=== PATIENT | female | born 1955 | race African-American/Black ===

== ENCOUNTER 2025-08-02 11:02 | Outpatient (CLI) | payer MEDICARE, SELFPAY ==
[2025-08-02 12:45] LABS: #Basophils 0.09 10x3/uL (0.0-0.2); #Eosinophils 0.15 10x3/uL (0.0-0.7); #Monocytes 0.91 10x3/uL (0.11-0.59); #Neutrophils 4.39 10x3/uL (1.40-6.50); %Basophils 1.0 % (0.0-1.0); %Eosinophils 1.6 % (0.0-10.0); %Lymphocytes 40.0 % (21.0-51.0); %Monocytes 9.8 % (0.0-10.0); %Neutrophils 47.3 % (42.0-75.0); Hematocrit 46.9 % (36.0-47.0); Hemoglobin 15.7 g/dL (12.0-16.0); Mean Corpuscular Hemoglobin 30.2 pg (27.0-31.0); Mean Corpuscular Volume 90.2 fL (78.0-98.0); Platelet Count 284 10x3/uL (130-400); Red Blood Cell (RBC) Count 5.20 mill/uL (4.20-5.40); White Blood Cell (WBC) Count 9.29 10x3/uL (4.8-10.8)
[2025-08-02 12:59] LABS: INR-International Normal Ratio 1.1; Prothrombin Time 14.0 sec (12.0-14.7)
[2025-08-02 13:06] LABS: ALT (SGPT) 18 U/L (Less than 34); AST (SGOT) 24 U/L (11-34); Albumin 4.2 g/dL (3.1-4.5); Alkaline Phosphatase 68 U/L (40-110); Anion Gap 10 mmol/L (10-20); BUN (Urea Nitrogen) 23 mg/dL (9.8-20.1); Bilirubin, Total 0.3 mg/dL (0.3-1.2); Calc. Creatinine Clearance 0 mL/min (70-130); Calcium 9.8 mg/dL (7.8-10.44); Carbon Dioxide 24 mmol/L (23-31); Chloride 108 mmol/L (98-107); Globulin 3.3 g/dL (2.4-3.5); Glucose 59 mg/dL (80-115); Potassium 3.9 mmol/L (3.5-5.1); Sodium 138 mmol/L (136-145)
== END 2025-08-02 11:03 | disposition home or self-care (01) ==
LOC: LABBT 11:02
PROVIDERS: ATTEND Orthopaedic Surgery
DX: Z01.812 Encounter for preprocedural laboratory examination (principal); M17.11 Unilateral primary osteoarthritis, right knee
CPT/HCPCS: 80053; 85025; 85610; 87081

== ENCOUNTER 2025-08-02 11:39 | Outpatient (CLI) | payer OTHER | END 2025-08-02 11:40 | disposition home or self-care (01) | LOC: CT 11:39 | PROVIDERS: ATTEND Orthopaedic Surgery | DX: Z01.818 Encounter for other preprocedural examination (principal); M17.11 Unilateral primary osteoarthritis, right knee ==